=== PATIENT | male | born 1950 | race Two or more races ===

== ENCOUNTER 2021-12-18 10:45 | Inpatient (IN) | payer MEDICARE, OTHER ==
[~2021-12-18] VITALS: Ht 175.3 cm; Wt 109.7 kg
[2021-12-18] MEDS ORDERED: ASPirin 81 mg TAB PO ONE (11:00)
[2021-12-18 12:24] LABS: Basophils # (auto) 0.2 10 ^3/uL (0-0.2); Basophils % (auto) 2.6 % (0.0-2.0); Eosinophils # (auto) 0.3 10 ^3/uL (0-0.8); Eosinophils % (auto) 5.5 % (0.0-7.0); Hematocrit 33.4 % (41.0-53.0); Hemoglobin 11.3 g/dL (13.5-17.5); Lymphocytes # (auto) 1.6 10 ^3/uL (0.4-5.4); Lymphocytes % (auto) 25.8 % (10.0-50.0); Mean Corpuscular Hemoglobin 29.1 pg (28.0-32.0); Mean Corpuscular Hgb Conc. 33.7 g/dL (32.0-36.0); Mean Corpuscular Volume 86.3 fL (80.0-100.0); Monocytes # (auto) 0.4 10 ^3/uL (0-1.3); Monocytes % (auto) 6.9 % (0.0-12.0); Neutrophils # (auto) 3.6 10 ^3/uL (1.6-8.6); Neutrophils % (auto) 59.2 % (37.0-80.0); Nucleated Red Blood Cells % 0.1 %; Red Blood Cells 3.87 10^6/uL (4.5-5.90); Red Cell Distribution Width 14.4 % (11.8-14.3); White Blood Cell 6.1 10^3/uL (4.4-10.8)
[2021-12-18 12:35] LABS: INR 1.01 (0.9-1.15); Partial Thromboplastin Time 24.3 sec (23.6-33.0)
[2021-12-18 12:37] LABS: Albumin 2.8 g/dL (3.4-5.0); Calcium 8.8 mg/dL (8.5-10.1); Magnesium 3.2 mg/dL (1.6-2.6); Potassium 4.6 mmol/L (3.5-5.1)
[2021-12-18 12:45] LABS: BUN/Creatinine Ratio 21.3; Bilirubin, Total 0.2 mg/dL (0.2-1.0); Total Protein 6.5 g/dL (6.4-8.2)
[2021-12-18 12:47] LABS: Urine Bacteria FEW /hpf (None Seen); Urine Blood TRACE /uL (Negative); Urine Hyaline Cast FEW /lpf (0 - 2); Urine Mucus FEW (None Seen); Urine Specific Gravity 1.018 (1.001-1.035); Urine WBC 2 /hpf (0 - 3)
[2021-12-18] MEDS ORDERED: ALBUMIN 25% 100 ML IV ONE ×2 (13:45→19:30)
[2021-12-18] MEDS ORDERED: DEXTROSE (50%) 50ML SYRG IV PRN (13:45)
[2021-12-18] MEDS ORDERED: BUMETANIDE 2.5mg/10ml (0.25 mg/ml) INJ IV ONE (13:45)
[2021-12-18] MEDS ORDERED: MORPHINE SULFATE INJECTION 2 MG/ML SYRG IV PRN (13:45)
[2021-12-18] MEDS ORDERED: NITROGLYCERIN 0.4 MG SL TAB SL PRN (13:45)
[2021-12-18] MEDS ORDERED: hydrALAZINE HCL 20 MG/ML VL IV PRN ×2 (13:45→19:30)
[2021-12-18] MEDS: ACCU-CHEK COMFORT CURVE STRIP VI SCH ×2 (17:00→22:05)
[2021-12-18 18:30] VITALS: BP 134/73
[2021-12-18] MEDS: InsuLIN REG 1unit/0.01ml Soln (100units/ml) SC SCH (18:37)
[2021-12-18] MEDS: BUMETANIDE 2.5mg/10ml (0.25 mg/ml) INJ IV SCH (19:00)
[2021-12-18] MEDS: ALBUMIN 25% 100 ML IV SCH (19:30)
[2021-12-18] MEDS ORDERED: SUCRALFATE 1 GM TAB PO ONE (19:30)
[2021-12-18] MEDS ORDERED: hydrALAZINE HCL 25 MG TAB PO ONE (19:30)
[2021-12-18] MEDS ORDERED: SODIUM CHLORIDE 0.9% 1,000 ML IV SCH (19:30)
[2021-12-18] MEDS ORDERED: PANTOPRAZOLE 40 MG/10 ML VIAL INJ IV ONE (19:30)
[2021-12-18] MEDS ORDERED: IPRATROPIUM BROM 0.5 MG/2.5ML INH SOL NEB ONE (19:30)
[2021-12-18] MEDS ORDERED: NICOTINE 21MG/24 HR TOPICAL PATCH TD ONE (20:00)
[2021-12-18 20:02] VITALS: BP 134/73
[2021-12-18] MEDS ORDERED: IPRATROPIUM BROM 0.5 MG/2.5ML INH SOL NEB SCH (22:00)
[2021-12-18] MEDS ORDERED: InsuLIN REG 1unit/0.01ml Soln (100units/ml) SC SCH (22:00)
[2021-12-18] MEDS: APIXABAN 5 MG TAB PO SCH (22:04)
[2021-12-18] MEDS: hydrALAZINE HCL 25 MG TAB PO SCH (22:04)
[2021-12-18] MEDS: ISOSORBIDE MONONITRATE 20 MG TAB PO SCH (22:05)
[2021-12-18] MEDS: ATORVASTATIN 20 MG TAB PO SCH (22:05)
[2021-12-18 22:11] LABS: Phosphorus 4.6 mg/dL (2.5-4.90)
[2021-12-18] MEDS ORDERED: IPRATROPIUM BROM 0.5 MG/2.5ML INH SOL NEB PRN (23:45)
[2021-12-19 01:57] VITALS: BP 147/74
[2021-12-19] MEDS: ALBUMIN 25% 100 ML IV SCH (03:33)
[2021-12-19] MEDS: SUCRALFATE 1 GM TAB PO SCH ×4 (05:32→22:12)
[2021-12-19] MEDS: InsuLIN REG 1unit/0.01ml Soln (100units/ml) SC SCH ×3 (05:33→22:15)
[2021-12-19] MEDS: ACCU-CHEK COMFORT CURVE STRIP VI SCH ×3 (05:46→22:05)
[2021-12-19 06:08] LABS: Basophils # (auto) 0 10 ^3/uL (0-0.2); Basophils % (auto) 0.7 % (0.0-2.0); Eosinophils # (auto) 0.4 10 ^3/uL (0-0.8); Eosinophils % (auto) 6.9 % (0.0-7.0); Hematocrit 31.9 % (41.0-53.0); Hemoglobin 10.8 g/dL (13.5-17.5); Lymphocytes # (auto) 1.9 10 ^3/uL (0.4-5.4); Lymphocytes % (auto) 28.8 % (10.0-50.0); Mean Corpuscular Hemoglobin 29.3 pg (28.0-32.0); Mean Corpuscular Hgb Conc. 33.9 g/dL (32.0-36.0); Mean Corpuscular Volume 86.4 fL (80.0-100.0); Monocytes # (auto) 0.5 10 ^3/uL (0-1.3); Monocytes % (auto) 7.2 % (0.0-12.0); Neutrophils # (auto) 3.6 10 ^3/uL (1.6-8.6); Neutrophils % (auto) 56.4 % (37.0-80.0); Nucleated Red Blood Cells % 0.6 %; Red Blood Cells 3.69 10^6/uL (4.5-5.90); Red Cell Distribution Width 14.7 % (11.8-14.3); White Blood Cell 6.4 10^3/uL (4.4-10.8)
[2021-12-19 06:12] LABS: INR 1.04 (0.9-1.15); Partial Thromboplastin Time 24.8 sec (23.6-33.0)
[2021-12-19 06:14] LABS: Albumin 2.9 g/dL (3.4-5.0); Calcium 8.9 mg/dL (8.5-10.1); Magnesium 3.1 mg/dL (1.6-2.6)
[2021-12-19 06:17] LABS: % Iron Saturation 16.2 % (20-55)
[2021-12-19 06:19] LABS: BUN/Creatinine Ratio 19.2; Bilirubin, Total 0.3 mg/dL (0.2-1.0); Phosphorus 5.2 mg/dL (2.5-4.90); Total Protein 6.4 g/dL (6.4-8.2); Uric Acid 8.9 mg/dL (3.5-7.2)
[2021-12-19] MEDS: BUMETANIDE 2.5mg/10ml (0.25 mg/ml) INJ IV SCH (07:08)
[2021-12-19 09:00] VITALS: BP 108/62
[2021-12-19 09:12] LABS: Folate (Folic Acid) 11.4 ng/mL (5.38-24)
[2021-12-19] MEDS: METOPROLOL SUCCINATE XL 50 MG TAB PO SCH (10:00)
[2021-12-19] MEDS ORDERED: PANTOPRAZOLE 40 MG/10 ML VIAL INJ IV SCH (10:00)
[2021-12-19] MEDS: hydrALAZINE HCL 25 MG TAB PO SCH ×2 (10:00→22:12)
[2021-12-19] MEDS: NICOTINE 21MG/24 HR TOPICAL PATCH TD SCH (10:13)
[2021-12-19] MEDS: APIXABAN 5 MG TAB PO SCH (10:14)
[2021-12-19] MEDS: ASPirin 81 mg TAB PO SCH (10:14)
[2021-12-19] MEDS: ISOSORBIDE MONONITRATE 20 MG TAB PO SCH ×2 (10:14→22:13)
[2021-12-19 11:28] LABS: Amphetamine Screen, Urine NEGATIVE (NEGATIVE); Barbiturate Scree,Urine NEGATIVE (NEGATIVE); Benzodiazephine Screen, Urine NEGATIVE (NEGATIVE); Cannabinoid Screen, Urine NEGATIVE (NEGATIVE); Cocaine Screen, Urine NEGATIVE (NEGATIVE); Opiate Scree,Urine NEGATIVE (NEGATIVE); Phencyclidine Screen, Urine NEGATIVE (NEGATIVE)
[2021-12-19 11:30] LABS: Alcohol, Urine < 3.0 mg/dL (0-10)
[2021-12-19] MEDS ORDERED: DEXTROSE (50%) 50ML SYRG IV PRN (12:30)
[2021-12-19 13:07] VITALS: BP 131/71
[2021-12-19 17:20] VITALS: BP 139/71
[2021-12-19 20:00] VITALS: BP 138/73
[2021-12-19 22:00] VITALS: BP 138/73
[2021-12-19] MEDS: ATORVASTATIN 20 MG TAB PO SCH (22:13)
[2021-12-20 04:36] VITALS: BP 136/87
[2021-12-20] MEDS: SUCRALFATE 1 GM TAB PO SCH ×4 (06:11→22:10)
[2021-12-20] MEDS: InsuLIN REG 1unit/0.01ml Soln (100units/ml) SC SCH ×4 (06:12→22:13)
[2021-12-20] MEDS: ACCU-CHEK COMFORT CURVE STRIP VI SCH ×4 (06:13→22:14)
[2021-12-20 06:36] LABS: BUN/Creatinine Ratio 22.5; Calcium 9.2 mg/dL (8.5-10.1); Potassium 4.2 mmol/L (3.5-5.1)
[2021-12-20 09:25] VITALS: BP 129/78
[2021-12-20] MEDS: ASPirin 81 mg TAB PO SCH (09:34)
[2021-12-20] MEDS: ISOSORBIDE MONONITRATE 20 MG TAB PO SCH ×2 (09:34→22:10)
[2021-12-20] MEDS: METOPROLOL SUCCINATE XL 50 MG TAB PO SCH (09:35)
[2021-12-20] MEDS: PANTOPRAZOLE 40 MG TAB PO SCH (09:35)
[2021-12-20] MEDS: NICOTINE 21MG/24 HR TOPICAL PATCH TD SCH (09:36)
[2021-12-20] MEDS ORDERED: AMLO-489 PO (09:46)
[2021-12-20] MEDS ORDERED: ATOR40TA52 PO (09:48)
[2021-12-20] MEDS ORDERED: LOSA-39 PO (09:48)
[2021-12-20] MEDS ORDERED: LINA1TAB PO (09:48)
[2021-12-20] MEDS ORDERED: METO-158 PO (09:51)
[2021-12-20] MEDS ORDERED: FURO20TA3 PO (09:51)
[2021-12-20] MEDS ORDERED: VENL150C3 PO (09:51)
[2021-12-20] MEDS ORDERED: POTA10TA51 PO (09:51)
[2021-12-20] MEDS ORDERED: INSLANTI SC (09:51)
[2021-12-20] MEDS ORDERED: EZET10TA22 PO (09:51)
[2021-12-20] MEDS ORDERED: APIX5TAB PO (09:51)
[2021-12-20] MEDS: hydrALAZINE HCL 25 MG TAB PO SCH (09:51)
[2021-12-20] MEDS ORDERED: PANT40TA2 PO (09:51)
[2021-12-20] MEDS ORDERED: traMADol HCL 50 MG TAB PO PRN (10:30)
[2021-12-20] MEDS ORDERED: VENLAFAXINE HCL 37.5mg XR cap PO ONE (10:45)
[2021-12-20] MEDS: ACETAMINOPHEN 500 MG TAB PO PRN (11:05)
[2021-12-20] MEDS ORDERED: FERROUS SULFATE 325mg EC TAB PO ONE (11:30)
[2021-12-20 12:04] VITALS: BP 133/70
[2021-12-20 16:37] VITALS: BP 138/75
[2021-12-20] MEDS: FERROUS SULFATE 325mg EC TAB PO SCH (18:00)
[2021-12-20 22:00] VITALS: BP 149/76
[2021-12-20] MEDS: ATORVASTATIN 20 MG TAB PO SCH (22:11)
[2021-12-20] MEDS: INSULIN LANTUS (GLARGINE) 1 /0.01ml (100units/ml) SC SCH (22:20)
[2021-12-21] MEDS: ACETAMINOPHEN 500 MG TAB PO PRN ×2 (00:15→13:44)
[2021-12-21 05:00] VITALS: BP 136/88
[2021-12-21] MEDS: SUCRALFATE 1 GM TAB PO SCH ×4 (06:26→22:05)
[2021-12-21] MEDS: InsuLIN REG 1unit/0.01ml Soln (100units/ml) SC SCH ×4 (06:27→22:17)
[2021-12-21] MEDS: ACCU-CHEK COMFORT CURVE STRIP VI SCH ×4 (06:28→22:06)
[2021-12-21] MEDS: INSULIN LANTUS (GLARGINE) 1 /0.01ml (100units/ml) SC SCH ×2 (06:28→22:18)
[2021-12-21 07:27] LABS: Calcium 9.5 mg/dL (8.5-10.1); Potassium 4.2 mmol/L (3.5-5.1)
[2021-12-21 08:46] VITALS: BP 155/78
[2021-12-21] MEDS: VENLAFAXINE HCL 37.5mg XR cap PO SCH (10:00)
[2021-12-21] MEDS: ASPirin 81 mg TAB PO SCH (11:13)
[2021-12-21] MEDS: FERROUS SULFATE 325mg EC TAB PO SCH ×2 (11:13→16:56)
[2021-12-21] MEDS: PANTOPRAZOLE 40 MG TAB PO SCH (11:14)
[2021-12-21] MEDS: ISOSORBIDE MONONITRATE 20 MG TAB PO SCH ×2 (11:14→22:06)
[2021-12-21] MEDS: METOPROLOL SUCCINATE XL 50 MG TAB PO SCH (11:23)
[2021-12-21] MEDS: NICOTINE 21MG/24 HR TOPICAL PATCH TD SCH (11:25)
[2021-12-21 13:00] VITALS: BP 150/63
[2021-12-21 16:57] VITALS: BP 149/83
[2021-12-21 21:00] VITALS: BP 130/69
[2021-12-21] MEDS: SODIUM CHLORIDE 0.9% 1,000 ML IV SCH (21:47)
[2021-12-21] MEDS: ATORVASTATIN 20 MG TAB PO SCH (22:06)
[2021-12-22 05:00] VITALS: BP 131/72
[2021-12-22] MEDS: SODIUM CHLORIDE 0.9% 1,000 ML IV SCH (06:28)
[2021-12-22] MEDS: SUCRALFATE 1 GM TAB PO SCH ×4 (06:29→22:09)
[2021-12-22] MEDS: INSULIN LANTUS (GLARGINE) 1 /0.01ml (100units/ml) SC SCH ×2 (06:30→22:28)
[2021-12-22] MEDS: ACCU-CHEK COMFORT CURVE STRIP VI SCH ×4 (06:30→22:24)
[2021-12-22] MEDS: InsuLIN REG 1unit/0.01ml Soln (100units/ml) SC SCH ×4 (06:30→22:27)
[2021-12-22 07:19] LABS: Potassium 4.7 mmol/L (3.5-5.1)
[2021-12-22 07:22] LABS: BUN/Creatinine Ratio 25.3; Calcium 9.3 mg/dL (8.5-10.1)
[2021-12-22] MEDS ORDERED: ANGIOMAX 250 MG VIAL IV ONE ×3 (07:43→09:22)
[2021-12-22] MEDS ORDERED: HEPARIN SODIUM (PORCINE) 5000 UNITS/ML 1ML VIAL ONE (07:43)
[2021-12-22] MEDS ORDERED: VERAPAMIL 2.5MG/ML INJ 2ML VIAL IV ONE (07:44)
[2021-12-22] MEDS ORDERED: SODIUM CHL 0.9% 50 ML ONE ×3 (07:44→09:23)
[2021-12-22] MEDS ORDERED: MIDAZOLAM HCL 2MG/2ML 2ml VIAL (1mg/ml) ONE (07:44)
[2021-12-22] MEDS ORDERED: LIDOCAINE 2%HCL (LOCAL ANESTH.) INJ 20ML MDV ONE (07:44)
[2021-12-22] MEDS ORDERED: IODIXANOL 320MG/ML 100ML BTL IV ONE ×3 (07:44→09:09)
[2021-12-22] MEDS ORDERED: fentaNYL CITRATE 100 MCG/2 ML VL ONE (07:44)
[2021-12-22] MEDS ORDERED: ASPirin 325 MG TAB ONE (09:19)
[2021-12-22] MEDS ORDERED: TICAGRELOR 90 MG TAB ONE (09:19)
[2021-12-22] MEDS ORDERED: HEPARIN DRIP/D5W 100UNITS/ML 250 ML IV SCH ×4 (09:45→22:00)
[2021-12-22] MEDS ORDERED: SODIUM CHLORIDE 0.9% 1,000 ML IV SCH (09:45)
[2021-12-22] MEDS: METOPROLOL SUCCINATE XL 50 MG TAB PO SCH (10:00)
[2021-12-22] MEDS: FERROUS SULFATE 325mg EC TAB PO SCH ×2 (12:23→18:24)
[2021-12-22] MEDS: ASPirin 81 mg TAB PO SCH (12:25)
[2021-12-22] MEDS: VENLAFAXINE HCL 37.5mg XR cap PO SCH (12:25)
[2021-12-22] MEDS: ISOSORBIDE MONONITRATE 20 MG TAB PO SCH ×2 (12:26→22:09)
[2021-12-22] MEDS: PANTOPRAZOLE 40 MG TAB PO SCH (12:27)
[2021-12-22] MEDS: NICOTINE 21MG/24 HR TOPICAL PATCH TD SCH (12:27)
[2021-12-22 12:53] LABS: Basophils # (auto) 0.1 10 ^3/uL (0-0.2); Eosinophils # (auto) 0.4 10 ^3/uL (0-0.8); Eosinophils % (auto) 6.6 % (0.0-7.0); Hematocrit 33.3 % (41.0-53.0); Hemoglobin 11.1 g/dL (13.5-17.5); Lymphocytes # (auto) 1.8 10 ^3/uL (0.4-5.4); Lymphocytes % (auto) 31.2 % (10.0-50.0); Mean Corpuscular Hemoglobin 28.7 pg (28.0-32.0); Mean Corpuscular Hgb Conc. 33.2 g/dL (32.0-36.0); Mean Corpuscular Volume 86.5 fL (80.0-100.0); Monocytes # (auto) 0.5 10 ^3/uL (0-1.3); Monocytes % (auto) 8.9 % (0.0-12.0); Neutrophils # (auto) 3.1 10 ^3/uL (1.6-8.6); Neutrophils % (auto) 52.3 % (37.0-80.0); Nucleated Red Blood Cells % 0.1 %; Red Blood Cells 3.85 10^6/uL (4.5-5.90); Red Cell Distribution Width 14.2 % (11.8-14.3); White Blood Cell 5.9 10^3/uL (4.4-10.8)
[2021-12-22 13:02] LABS: INR 4.18 (0.9-1.15)
[2021-12-22 13:03] LABS: Partial Thromboplastin Time 77.2 sec (23.6-33.0)
[2021-12-22] MEDS ORDERED: FUROSEMIDE 40 MG/4 ML VIAL ONE (14:40)
[2021-12-22] MEDS ORDERED: FUROSEMIDE 40 MG/4 ML VIAL IV ONE (14:45)
[2021-12-22 16:42] LABS: Basophils # (auto) 0.1 10 ^3/uL (0-0.2); Eosinophils # (auto) 0.3 10 ^3/uL (0-0.8); Eosinophils % (auto) 6.1 % (0.0-7.0); Hematocrit 32.3 % (41.0-53.0); Hemoglobin 10.9 g/dL (13.5-17.5); Lymphocytes # (auto) 1.5 10 ^3/uL (0.4-5.4); Lymphocytes % (auto) 25.6 % (10.0-50.0); Mean Corpuscular Hemoglobin 29.1 pg (28.0-32.0); Mean Corpuscular Hgb Conc. 33.7 g/dL (32.0-36.0); Mean Corpuscular Volume 86.2 fL (80.0-100.0); Monocytes # (auto) 0.4 10 ^3/uL (0-1.3); Monocytes % (auto) 7.5 % (0.0-12.0); Neutrophils # (auto) 3.4 10 ^3/uL (1.6-8.6); Neutrophils % (auto) 59.8 % (37.0-80.0); Nucleated Red Blood Cells % 0.1 %; Red Blood Cells 3.75 10^6/uL (4.5-5.90); Red Cell Distribution Width 14.4 % (11.8-14.3); White Blood Cell 5.7 10^3/uL (4.4-10.8)
[2021-12-22 17:03] LABS: BUN/Creatinine Ratio 21.8; Calcium 9.1 mg/dL (8.5-10.1); Potassium 4.5 mmol/L (3.5-5.1)
[2021-12-22 17:05] LABS: Bilirubin, Total 0.2 mg/dL (0.2-1.0); Total Protein 6.6 g/dL (6.4-8.2)
[2021-12-22 17:22] LABS: INR 1.35 (0.9-1.15); Partial Thromboplastin Time 44.5 sec (23.6-33.0)
[2021-12-22 20:00] VITALS: BP 134/89
[2021-12-22] MEDS: ATORVASTATIN 20 MG TAB PO SCH (22:09)
[2021-12-22] MEDS: TICAGRELOR 90 MG TAB PO SCH (22:09)
[2021-12-22 23:42] LABS: INR 1.09 (0.9-1.15); Partial Thromboplastin Time 31.1 sec (23.6-33.0)
[2021-12-23] MEDS ORDERED: HEPARIN SODIUM (PORCINE) 5000 UNITS/ML 1ML VIAL IV ONE ×2 (01:00→16:00)
[2021-12-23] MEDS: ACETAMINOPHEN 500 MG TAB PO PRN (01:21)
[2021-12-23 02:46] LABS: INR 1.12 (0.9-1.15)
[2021-12-23 02:47] LABS: Partial Thromboplastin Time 79.7 sec (23.6-33.0)
[2021-12-23] MEDS: SUCRALFATE 1 GM TAB PO SCH ×4 (06:47→21:15)
[2021-12-23] MEDS: InsuLIN REG 1unit/0.01ml Soln (100units/ml) SC SCH ×4 (06:48→21:25)
[2021-12-23] MEDS: INSULIN LANTUS (GLARGINE) 1 /0.01ml (100units/ml) SC SCH ×2 (06:49→21:26)
[2021-12-23] MEDS: ACCU-CHEK COMFORT CURVE STRIP VI SCH ×4 (06:49→21:27)
[2021-12-23 07:50] LABS: Hematocrit 33.7 % (41.0-53.0); Hemoglobin 11.1 g/dL (13.5-17.5); Mean Corpuscular Hemoglobin 28.7 pg (28.0-32.0); Mean Corpuscular Volume 86.8 fL (80.0-100.0); Red Blood Cells 3.88 10^6/uL (4.5-5.90); Red Cell Distribution Width 14.1 % (11.8-14.3); White Blood Cell 7.5 10^3/uL (4.4-10.8)
[2021-12-23 08:03] LABS: Basophils % (manual) 0 (0.0-2.0); Blast Cells 0; Chloride 100 mmol/L (98-107); Metamyelocytes % 0; Myelocytes % 0; Potassium 4.3 mmol/L (3.5-5.1); Promyelocytes % 0; Reactive Lymphocytes 0; Sodium 133 mmol/L (136-145)
[2021-12-23 08:10] LABS: Partial Thromboplastin Time 28.2 sec (23.6-33.0)
[2021-12-23 08:12] LABS: Anion Gap 5 (5-15); BUN/Creatinine Ratio 24.2; Blood Urea Nitrogen 50 mg/dL (7-18); Calcium 9.3 mg/dL (8.5-10.1); Carbon Dioxide 28 mmol/L (21-32); GFR African American 41 mL/min; GFR Non-African American 34 mL/min; Glucose 178 mg/dL (74-106)
[2021-12-23] MEDS: FERROUS SULFATE 325mg EC TAB PO SCH ×2 (08:30→17:32)
[2021-12-23 09:28] LABS: Band Neutrophils % (manual) 2; Eosinophils % (manual) 9 (0-7); Lymphocytes % (manual) 15 (10.0-50.0); Monocytes % (manual) 5 (0-12)
[2021-12-23] MEDS: METOPROLOL SUCCINATE XL 50 MG TAB PO SCH (10:00)
[2021-12-23] MEDS: ISOSORBIDE MONONITRATE 20 MG TAB PO SCH ×2 (10:00→22:44)
[2021-12-23] MEDS: PANTOPRAZOLE 40 MG TAB PO SCH (10:00)
[2021-12-23] MEDS: TICAGRELOR 90 MG TAB PO SCH ×2 (10:00→21:16)
[2021-12-23] MEDS: NICOTINE 21MG/24 HR TOPICAL PATCH TD SCH (10:00)
[2021-12-23] MEDS: VENLAFAXINE HCL 37.5mg XR cap PO SCH (10:00)
[2021-12-23] MEDS: ASPirin 81 mg TAB PO SCH (10:00)
[2021-12-23 10:14] VITALS: BP 139/91
[2021-12-23 13:00] VITALS: BP 127/84
[2021-12-23 15:28] LABS: INR 1.03 (0.9-1.15); Partial Thromboplastin Time 29.3 sec (23.6-33.0)
[2021-12-23] MEDS: HEPARIN DRIP/D5W 100UNITS/ML 250 ML IV SCH (16:23)
[2021-12-23 16:44] VITALS: BP 121/75
[2021-12-23 20:00] VITALS: BP 134/89
[2021-12-23] MEDS: ATORVASTATIN 20 MG TAB PO SCH (21:15)
[2021-12-23 22:25] VITALS: BP 130/65
[2021-12-23 23:21] LABS: INR 1.01 (0.9-1.15); Partial Thromboplastin Time 32.3 sec (23.6-33.0)
[2021-12-24] MEDS ORDERED: HEPARIN SODIUM (PORCINE) 5000 UNITS/ML 1ML VIAL IV ONE
[2021-12-24] MEDS: HEPARIN DRIP/D5W 100UNITS/ML 250 ML IV SCH ×2 (02:00→13:00)
[2021-12-24 05:31] VITALS: BP 115/67
[2021-12-24] MEDS: SUCRALFATE 1 GM TAB PO SCH ×4 (06:25→20:05)
[2021-12-24] MEDS: InsuLIN REG 1unit/0.01ml Soln (100units/ml) SC SCH ×4 (06:35→21:51)
[2021-12-24] MEDS: ACCU-CHEK COMFORT CURVE STRIP VI SCH ×4 (06:36→21:49)
[2021-12-24] MEDS: INSULIN LANTUS (GLARGINE) 1 /0.01ml (100units/ml) SC SCH ×2 (06:36→21:50)
[2021-12-24 07:58] LABS: Basophils # (auto) 0.1 10 ^3/uL (0-0.2); Basophils % (auto) 0.7 % (0.0-2.0); Eosinophils # (auto) 0.5 10 ^3/uL (0-0.8); Eosinophils % (auto) 6.2 % (0.0-7.0); Hematocrit 31.2 % (41.0-53.0); Hemoglobin 10.6 g/dL (13.5-17.5); Lymphocytes # (auto) 2.1 10 ^3/uL (0.4-5.4); Lymphocytes % (auto) 28.9 % (10.0-50.0); Mean Corpuscular Hemoglobin 29.1 pg (28.0-32.0); Mean Corpuscular Volume 85.6 fL (80.0-100.0); Monocytes # (auto) 0.5 10 ^3/uL (0-1.3); Monocytes % (auto) 7.1 % (0.0-12.0); Neutrophils # (auto) 4.2 10 ^3/uL (1.6-8.6); Neutrophils % (auto) 57.1 % (37.0-80.0); Red Blood Cells 3.64 10^6/uL (4.5-5.90); Red Cell Distribution Width 14.3 % (11.8-14.3); White Blood Cell 7.4 10^3/uL (4.4-10.8)
[2021-12-24] MEDS: FERROUS SULFATE 325mg EC TAB PO SCH ×2 (08:00→17:30)
[2021-12-24 08:09] LABS: BUN/Creatinine Ratio 21.6; Bilirubin, Total 0.2 mg/dL (0.2-1.0); Calcium 9.1 mg/dL (8.5-10.1); Phosphorus 3.8 mg/dL (2.5-4.90); Total Protein 6.6 g/dL (6.4-8.2)
[2021-12-24 08:13] LABS: INR 1.04 (0.9-1.15); Partial Thromboplastin Time 41.8 sec (23.6-33.0)
[2021-12-24 09:00] VITALS: BP 119/63
[2021-12-24] MEDS ORDERED: FUROSEMIDE 40 MG/4 ML VIAL IV ONE (10:00)
[2021-12-24] MEDS: NICOTINE 21MG/24 HR TOPICAL PATCH TD SCH (10:00)
[2021-12-24] MEDS: ISOSORBIDE MONONITRATE 20 MG TAB PO SCH ×2 (10:00→21:40)
[2021-12-24] MEDS: METOPROLOL SUCCINATE XL 50 MG TAB PO SCH (10:00)
[2021-12-24] MEDS: PANTOPRAZOLE 40 MG TAB PO SCH (10:00)
[2021-12-24] MEDS: VENLAFAXINE HCL 37.5mg XR cap PO SCH (10:00)
[2021-12-24] MEDS: ASPirin 81 mg TAB PO SCH (10:00)
[2021-12-24] MEDS: TICAGRELOR 90 MG TAB PO SCH ×2 (10:00→20:07)
[2021-12-24 11:15] LABS: INR 1.04 (0.9-1.15); Partial Thromboplastin Time 30.2 sec (23.6-33.0)
[2021-12-24] MEDS: ACETAMINOPHEN 500 MG TAB PO PRN ×2 (12:00→20:06)
[2021-12-24 14:06] VITALS: BP 125/55
[2021-12-24 15:34] LABS: INR 1.02 (0.9-1.15); Partial Thromboplastin Time 31.2 sec (23.6-33.0)
[2021-12-24 17:00] VITALS: BP 123/72
[2021-12-24] MEDS: SODIUM CHLORIDE 0.9% 1,000 ML IV SCH (18:45)
[2021-12-24] MEDS: ATORVASTATIN 20 MG TAB PO SCH (20:05)
[2021-12-24 22:00] VITALS: BP 131/72
[2021-12-24 23:07] LABS: INR 1.05 (0.9-1.15); Partial Thromboplastin Time 61.2 sec (23.6-33.0)
[2021-12-25] MEDS: HEPARIN DRIP/D5W 100UNITS/ML 250 ML IV SCH ×3 (00:01→07:25)
[2021-12-25] MEDS: SODIUM CHLORIDE 0.9% 1,000 ML IV SCH ×2 (04:39→14:45)
[2021-12-25] MEDS: ATORVASTATIN 20 MG TAB PO SCH (04:55)
[2021-12-25 05:00] VITALS: BP 133/62
[2021-12-25] MEDS: SUCRALFATE 1 GM TAB PO SCH ×3 (05:58→17:00)
[2021-12-25] MEDS: InsuLIN REG 1unit/0.01ml Soln (100units/ml) SC SCH ×3 (05:59→17:00)
[2021-12-25] MEDS: ACCU-CHEK COMFORT CURVE STRIP VI SCH ×3 (06:00→17:00)
[2021-12-25 06:06] LABS: Basophils # (auto) 0 10 ^3/uL (0-0.2); Basophils % (auto) 0.7 % (0.0-2.0); Eosinophils # (auto) 0.5 10 ^3/uL (0-0.8); Eosinophils % (auto) 7.5 % (0.0-7.0); Hematocrit 30.8 % (41.0-53.0); Hemoglobin 10.4 g/dL (13.5-17.5); Lymphocytes # (auto) 2.1 10 ^3/uL (0.4-5.4); Lymphocytes % (auto) 31.1 % (10.0-50.0); Mean Corpuscular Hgb Conc. 33.7 g/dL (32.0-36.0); Mean Corpuscular Volume 85.9 fL (80.0-100.0); Monocytes # (auto) 0.5 10 ^3/uL (0-1.3); Monocytes % (auto) 6.7 % (0.0-12.0); Neutrophils # (auto) 3.6 10 ^3/uL (1.6-8.6); Nucleated Red Blood Cells % 0.1 %; Red Blood Cells 3.59 10^6/uL (4.5-5.90); Red Cell Distribution Width 14.3 % (11.8-14.3); White Blood Cell 6.7 10^3/uL (4.4-10.8)
[2021-12-25] MEDS: INSULIN LANTUS (GLARGINE) 1 /0.01ml (100units/ml) SC SCH (06:14)
[2021-12-25 06:17] LABS: INR 1.04 (0.9-1.15); Partial Thromboplastin Time 31.5 sec (23.6-33.0)
[2021-12-25 06:25] LABS: Albumin 3.1 g/dL (3.4-5.0); Calcium 8.8 mg/dL (8.5-10.1); Potassium 4.1 mmol/L (3.5-5.1)
[2021-12-25 06:30] LABS: BUN/Creatinine Ratio 18.9; Bilirubin, Total 0.3 mg/dL (0.2-1.0); Phosphorus 4.7 mg/dL (2.5-4.90); Total Protein 6.4 g/dL (6.4-8.2)
[2021-12-25 08:00] VITALS: BP 155/68
[2021-12-25] MEDS: FERROUS SULFATE 325mg EC TAB PO SCH ×2 (08:00→18:00)
[2021-12-25] MEDS ORDERED: CLOPIDOGREL 300 MG TAB PO ONE (09:00)
[2021-12-25] MEDS: NICOTINE 21MG/24 HR TOPICAL PATCH TD SCH (10:00)
[2021-12-25] MEDS: VENLAFAXINE HCL 37.5mg XR cap PO SCH (10:00)
[2021-12-25] MEDS: PANTOPRAZOLE 40 MG TAB PO SCH (10:00)
[2021-12-25] MEDS: METOPROLOL SUCCINATE XL 50 MG TAB PO SCH (10:00)
[2021-12-25] MEDS: ASPirin 81 mg TAB PO SCH (10:00)
[2021-12-25] MEDS: ISOSORBIDE MONONITRATE 20 MG TAB PO SCH (10:00)
[2021-12-25 12:00] VITALS: BP 140/71
[2021-12-25] MEDS ORDERED: CLOP75TA28 PO (13:40)
[2021-12-25 14:59] VITALS: BP 155/68
[2021-12-25 15:20] LABS: INR 1.03 (0.9-1.15); Partial Thromboplastin Time 22.3 sec (23.6-33.0)
[2021-12-25 16:00] VITALS: BP 129/72
[2021-12-26] MEDS ORDERED: CLOPIDOGREL BISULFATE 75 MG TAB PO SCH (10:00)
== END 2021-12-25 19:45 | disposition home or self-care (01) | DRG 250 ==
LOC: ER 10:45 → TELE 13:43 → TELE-WESTW 17:51
PROVIDERS: ADMIT Hospitalist; ATTEND Internal Medicine
PROC: 4A023N7 Measurement of Cardiac Sampling and Pressure, Left Heart, Percutaneous Approach (ICD-10-PCS; principal; 2021-12-22)
PROC: 02703ZZ Dilation of Coronary Artery, One Artery, Percutaneous Approach (ICD-10-PCS; 2021-12-22)
PROC: B211YZZ Fluoroscopy of Multiple Coronary Arteries using Other Contrast (ICD-10-PCS; 2021-12-22)
PROC: B215YZZ Fluoroscopy of Left Heart using Other Contrast (ICD-10-PCS; 2021-12-22)
PROC: B218YZZ Fluoroscopy of Left Internal Mammary Bypass Graft using Other Contrast (ICD-10-PCS; 2021-12-22)
PROC: B212YZZ Fluoroscopy of Single Coronary Artery Bypass Graft using Other Contrast (ICD-10-PCS; 2021-12-22)
DX: I25.110 Atherosclerotic heart disease of native coronary artery with unstable angina pectoris (principal); N17.0 Acute kidney failure with tubular necrosis; I13.0 Hypertensive heart and chronic kidney disease with heart failure and stage 1 through stage 4 chronic kidney disease, or unspecified chronic kidney disease; J96.10 Chronic respiratory failure, unspecified whether with hypoxia or hypercapnia; I25.5 Ischemic cardiomyopathy; J44.9 Chronic obstructive pulmonary disease, unspecified; K21.9 Gastro-esophageal reflux disease without esophagitis; K29.70 Gastritis, unspecified, without bleeding; Z20.822 Contact with and (suspected) exposure to COVID-19; N40.0 Benign prostatic hyperplasia without lower urinary tract symptoms; I48.0 Paroxysmal atrial fibrillation; E11.22 Type 2 diabetes mellitus with diabetic chronic kidney disease; E66.01 Morbid (severe) obesity due to excess calories; E78.5 Hyperlipidemia, unspecified; F17.210 Nicotine dependence, cigarettes, uncomplicated; I44.0 Atrioventricular block, first degree; N18.32 Chronic kidney disease, stage 3b; N28.1 Cyst of kidney, acquired; Z79.01 Long term (current) use of anticoagulants; Z79.02 Long term (current) use of antithrombotics/antiplatelets; Z81.8 Family history of other mental and behavioral disorders; Z95.1 Presence of aortocoronary bypass graft
CPT/HCPCS: 36415; 71045; 76775; 80048; 80053; 80307; 81001; 82607; 82746; 82962; 83036; 83540; 83550; 83735; 83880; 84100; 84484; 84550; 85007; 85025; 85027; 85379; 85610; 85730; 86850; 86900; 86901; 87426; 92920; 93005; 93306; 93459; 96365; 96375; 99152; 99153; 99291; C9113; G0378; J1815; J2250; P9047; Q9967

== ENCOUNTER → 2022-04-13 | Outpatient (CLI) | payer MEDICARE, OTHER ==
[~2022-04-13] MED LIST: AMLO-489 PO; APIX5TAB PO; ATOR40TA52 PO; CLOP75TA28 PO; EZET10TA22 PO; FURO20TA3 PO; INSLANTI SC; LINA1TAB PO; METO-158 PO; PANT40TA2 PO; POTA10TA51 PO; VENL150C3 PO
[2022-04-13 09:37] LABS: Calcium 9.2 mg/dL (8.5-10.1); Potassium 4.4 mmol/L (3.5-5.1)
== END | disposition home or self-care (01) ==
LOC: LAB 08:14
PROVIDERS: ATTEND Internal Medicine Nephrology
DX: N19 Unspecified kidney failure (principal)
CPT/HCPCS: 36415; 80048